=== PATIENT | female | born 1960 | race Caucasian/White ===

== ENCOUNTER 2019-12-10 08:43 | Outpatient (REF) | payer OTHER, SELFPAY | END 2019-12-10 08:44 | disposition home or self-care (01) | LOC: HO.LAB 08:43 | PROVIDERS: Visit Provider Internal Medicine | DX: Z20.828 Contact with and (suspected) exposure to other viral communicable diseases (principal) | CPT/HCPCS: 87635 ==

== ENCOUNTER 2019-12-28 09:02 | Outpatient (REF) | payer OTHER, SELFPAY ==
--- NOTE | 2019-12-28 14:56 | XR_ITS ---
EXAMINATION: XR ANKLE, LEFT CLINICAL INFORMATION: Pain COMPARISON: None TECHNIQUE: AP, lateral, and mortise views of the left ankle. FINDINGS: The bones and soft tissues are normal. No fracture. Alignment is anatomic. Joint spaces are maintained. No joint effusion. There are calcaneal spurs. XR/XR ankle LT min 3V IMPRESSION: Calcaneal spurs otherwise unremarkable exam.
== END 2019-12-28 09:03 | disposition home or self-care (01) ==
LOC: HO.LAB 09:02
PROVIDERS: Absent Provider Student in an Organized Health Care Education/Training Program; PCP Internal Medicine; Visit Provider Internal Medicine
DX: Z20.828 Contact with and (suspected) exposure to other viral communicable diseases (principal); M25.572 Pain in left ankle and joints of left foot; M25.551 Pain in right hip
CPT/HCPCS: 73610; 99212; C9803; U0003

== ENCOUNTER 2020-01-29 15:28 | Outpatient (REF) | payer OTHER, SELFPAY | END 2020-01-29 15:29 | disposition home or self-care (01) | LOC: HO.LAB 15:28 | PROVIDERS: PCP Internal Medicine; Visit Provider Internal Medicine | DX: Z20.828 Contact with and (suspected) exposure to other viral communicable diseases (principal) | CPT/HCPCS: C9803; U0003 ==

== ENCOUNTER 2020-02-12 08:00 | Outpatient (RCR) | payer OTHER, SELFPAY ==
--- NOTE | 2020-02-26 14:42 | MHC.PT.DC ---
[facility] [place] Office [place] [facility] [place] Office [address] [phone] F: [phone] F: [phone] F: [phone] F: [phone] Physical Therapy Discharge Report Diagnosis: RIGHT HIP PAIN, CHRONIC IN NATURE. NOW WORSENING. PAIN IS DESCRIBED DULL, JOINT PAIN IN ANTERIOR CREASE OF THIGH. DENIES ALTERED SENSATION, DENIES EDEMA, ECCHYMOSIS. LIVES IN SINGLE STORY HOME WITH STAIRS TO BASEMENT. PAIN INCREASES WITH LONGER PERIODS OF WALKING (GREATER THAN 15 MINS) [ End ] Date of Surgery: NA Date of Evaluation: 01/04/20 Date of Discharge: 02/12/20 Treatments to Date: 6 Cancellations to Date: 4 No Shows to Date: 0 Discharge Status: Patient Elected to Stop Recommend MD Follow-up Discharge Summary: 02/11 pt plans to follow up with product manufacturing professional. Reports continued hip pain when walking, no signif change in symptoms. She was advised to contact MD as she feels her sx are unchanged since trial of PT Electronically signed by: Jania Schilling PT, DPT Please sign and return to therapist. Thank you for your referral.
== END 2020-02-26 14:59 | disposition other institution (70) ==
LOC: HO.PT 08:00
PROVIDERS: Visit Provider Student in an Organized Health Care Education/Training Program
DX: M25.572 Pain in left ankle and joints of left foot (principal); M25.551 Pain in right hip
CPT/HCPCS: 97110; 97162; 97530

== ENCOUNTER 2020-02-14 09:40 | Outpatient (REF) | payer OTHER, SELFPAY ==
[2020-02-15 12:54] LABS: BV Int Neg Control Negative (Negative); BV Int Pos Control Positive (Positive)
[2020-02-19 21:12] LABS: HPV mRNA E6/E7 rflx Not Detected (Not Detected)
== END 2020-02-14 09:41 | disposition home or self-care (01) ==
LOC: HO.LAB 09:40
PROVIDERS: PCP Internal Medicine; Visit Provider Advanced Practice Midwife
DX: Z12.4 Encounter for screening for malignant neoplasm of cervix (principal); Z20.2 Contact with and (suspected) exposure to infections with a predominantly sexual mode of transmission
CPT/HCPCS: 36415; 87480; 87510; 87624; 87660; 88142

== ENCOUNTER 2020-02-22 10:31 | Outpatient (REF) | payer OTHER, SELFPAY | END 2020-02-22 10:32 | disposition home or self-care (01) | LOC: HO.HAP 10:31 | PROVIDERS: Visit Provider Internal Medicine | DX: Z46.1 Encounter for fitting and adjustment of hearing aid (principal) | CPT/HCPCS: V5266 ==

== ENCOUNTER 2020-04-16 13:15 | Outpatient (REF) | payer OTHER, SELFPAY ==
--- NOTE | ~2020-04-16 | MM_ITS ---
EXAMINATION: MM DIAGNOSTIC DIGITAL BREAST TOMOSYNTHESIS, BILATERAL US DIAGNOSTIC ULTRASOUND BREAST, LEFT CLINICAL INFORMATION: Chronic left breast pain on and off lateral aspect. No palpable mass or discharge. No known family history breast cancer. The lifetime risk of breast cancer based on the Tyrer-Cuzick Model is 8%. COMPARISON: Mammography: 03/27/2019, 03/16/2018, 03/15/2017 TECHNIQUE: Digital breast tomosynthesis is performed in both the craniocaudal and mediolateral oblique views along with computer-aided detection (CAD). Synthesized 2D images are generated from the tomosynthesis. Additional right MLO view is provided. Ultrasound left breast is targeted to the areas of clinical concern outer breast. Grayscale imaging and color Doppler are performed without and with harmonics. FINDINGS: There are scattered areas of fibroglandular density (ACR BI-RADS breast composition Category b). Parenchymal pattern is similar to prior exams. There is no interval mass or architectural abnormality or developing density. No abnormal calcifications. No skin thickening or coarsening of the Shivam's ligaments. Ultrasound demonstrates no cystic or solid mass or architectural abnormality. No focal duct ectasia. No skin thickening or edema tracking in soft tissue planes. Results are discussed with the patient at time of visit. MM/MM tomosynthesis diagnostic BI IMPRESSION: 1. No mammographic evidence of malignancy or focal inflammatory changes. 2. Unremarkable targeted left breast ultrasound. ASSESSMENT: BI-RADS 1: Negative RECOMMENDATION: 1. Patient's breast pain should be managed based on the clinical impression. 2. Otherwise, routine annual screening mammography. This patient's information was entered into a reminder system with a target due date for their next mammogram.
== END 2020-04-16 13:16 | disposition home or self-care (01) ==
LOC: HO.MAMMO 13:15
PROVIDERS: PCP Internal Medicine; Visit Provider Internal Medicine
DX: N64.4 Mastodynia (principal)
CPT/HCPCS: 76642; 77062; 77066

== ENCOUNTER 2020-05-13 14:29 | Outpatient (REF) | payer OTHER, SELFPAY ==
[2020-05-14 11:19] LABS: SARS COV2 PCR INHOUSE NEGATIVE (Negative)
== END 2020-05-13 14:30 | disposition home or self-care (01) ==
LOC: HO.LAB 14:29
PROVIDERS: Visit Provider Internal Medicine
DX: Z20.822 Contact with and (suspected) exposure to COVID-19 (principal)
CPT/HCPCS: C9803; U0003

== ENCOUNTER 2020-06-20 14:00 | Outpatient (RCR) | payer OTHER, SELFPAY | END 2020-06-20 15:02 | disposition other institution (70) | LOC: HO.PT 14:00 | PROVIDERS: PCP Internal Medicine; Visit Provider Podiatrist | DX: M76.62 Achilles tendinitis, left leg (principal) | CPT/HCPCS: 97035; 97110; 97112; 97140; 97161; 97530 ==

== ENCOUNTER 2020-08-22 06:56 | Outpatient (REF) | payer OTHER, SELFPAY ==
[2020-08-22 07:20] LABS: MANUAL DIFF FLAG NO
[2020-08-22 07:23] LABS: Basophils Percent Auto 0.4 % (0-2); Eosinophils Percent Auto 2.7 % (0-4); Hematocrit 38.9 % (37-47); Hemoglobin 11.9 g/dl (12.0-16.0); Imm Gran Abs Auto 0.02 X10*3/uL (0.00-0.03); Imm Gran Pct Auto 0.3 % (0.0-0.4); Lymphocytes Absolute Auto 1.9 X10*3/uL (1.2-4.9); Lymphocytes Percent Auto 25.4 % (20-40); Mean Corpuscular HGB Conc 30.6 g/dl (31.0-35.0); Mean Corpuscular Hemoglobin 27.5 pg (27.0-33.0); Monocytes Absolute Auto 0.6 X10*3/uL (0.1-1.2); Monocytes Percent Auto 8.5 % (2-11); Neutrophils Absolute Auto 4.6 X10*3/uL (2.0-8.3); Neutrophils Percent Auto 62.7 % (45-73); Platelet Count 418 X10*3/uL (160-400); Red Blood Count 4.32 X10*6/uL (4.20-5.50); White Blood Count 7.3 X10*3/uL (4.8-10.8)
[2020-08-22 07:24] LABS: Eosinophils Absolute Auto 0.2 X10*3/uL (0.0-0.4)
[2020-08-22 07:50] LABS: Alanine Aminotransferase 22 U/L (0-31); Albumin Level 4.1 g/dL (3.5-5.0); Alkaline Phosphatase 95 U/L (39-117); Anion Gap 14 (12-20); Aspartate Amino Transferase 18 U/L (5-31); Bilirubin Total 0.2 mg/dL (0.0-1.0); Blood Urea Nitrogen 17 mg/dL (9-16); Calcium 9.5 mg/dL (8.4-10.2); Carbon Dioxide 26 mmol/L (22-29); Chloride 108 mmol/L (96-108); Cholesterol 216 mg/dL; Estimated Glomerular Filt Rate > 60; Glucose Random 102 mg/dL (60-115); HDL Cholesterol 48 mg/dL; LDL Cholesterol Calculated 140 mg/dl; Potassium 3.8 mmol/L (3.3-5.1); Sodium 144 mmol/L (135-145); Total Protein 6.8 g/dL (6.5-8.0); Triglycerides 141 mg/dL
[2020-08-22 08:12] LABS: Free T4 (Free Thyroxine) 0.99 ng/dL (0.71-1.85); Thyroid Stimulating Hormone 1.42 uIU/mL (0.32-4.0)
[2020-08-22 08:40] LABS: Folate 13.9 ng/mL (> or = 4.0); Vitamin B12 275 pg/mL (200-900)
== END 2020-08-22 06:57 | disposition home or self-care (01) ==
LOC: HO.LAB 06:56
PROVIDERS: PCP Internal Medicine; Visit Provider Internal Medicine
DX: I10 Essential (primary) hypertension (principal); E78.00 Pure hypercholesterolemia, unspecified
CPT/HCPCS: 36415; 80053; 80061; 82306; 82607; 82746; 84439; 84443; 85025

== ENCOUNTER → 2020-10-23 11:12 | Outpatient (BNVA) | payer OTHER, SELFPAY | PROVIDERS: PCP Internal Medicine; Visit Provider Student in an Organized Health Care Education/Training Program | CPT/HCPCS: Q3014 ==

== ENCOUNTER 2020-10-31 11:35 | Outpatient (REF) | payer OTHER, SELFPAY ==
--- NOTE | ~2020-10-31 | XR_ITS ---
EXAMINATION: XR LUMBOSACRAL SPINE CLINICAL INFORMATION: Low back pain COMPARISON: Previous x-ray August 2015 TECHNIQUE: Three views of the lumbosacral spine. FINDINGS: There is mild curvature of the mid lumbar spine to the left. Bone alignment is otherwise normal. No fracture or dislocation is seen. Disc spaces are normal. There is lower lumbar spine facet arthritis. There is degenerative spondylosis at L3-L4 and L4-L5. XR/XR lumbar spine 2-3V IMPRESSION: Degenerative changes.
== END 2020-10-31 11:36 | disposition home or self-care (01) ==
LOC: HO.XRAY 11:35
PROVIDERS: PCP Internal Medicine; Visit Provider Student in an Organized Health Care Education/Training Program
DX: M54.5 Low back pain (principal)
CPT/HCPCS: 72100

== ENCOUNTER 2020-11-27 08:17 | Outpatient (REF) | payer OTHER, SELFPAY ==
[2020-11-27 08:28] LABS: MANUAL DIFF FLAG NO
[2020-11-27 09:18] LABS: Basophils Percent Auto 0.5 % (0-2); Eosinophils Absolute Auto 0.3 X10*3/uL (0.0-0.4); Eosinophils Percent Auto 3.5 % (0-4); Hemoglobin 12.9 g/dl (12.0-16.0); Imm Gran Abs Auto 0.03 X10*3/uL (0.00-0.03); Imm Gran Pct Auto 0.4 % (0.0-0.4); Immature Retic Fraction 10.6 % (3.0-15.9); Lymphocytes Absolute Auto 1.9 X10*3/uL (1.2-4.9); Lymphocytes Percent Auto 24.3 % (20-40); Mean Corpuscular HGB Conc 30.7 g/dl (31.0-35.0); Mean Corpuscular Hemoglobin 27.1 pg (27.0-33.0); Mean Corpuscular Volume 88.2 fL (80-98); Mean Platelet Volume 10.4 fL (9.4-12.3); Monocytes Absolute Auto 0.5 X10*3/uL (0.1-1.2); Monocytes Percent Auto 6.7 % (2-11); Neutrophils Percent Auto 64.6 % (45-73); Platelet Count 451 X10*3/uL (160-400); Red Blood Count 4.76 X10*6/uL (4.20-5.50); Red Cell Distribution Width 12.8 % (11.0-16.0); Retic HGB Equivalent 29.7 pg (30.0-35.0); Reticulocyte Percent 1.9 % (0.5-1.8); Reticulocytes Absolute 0.091 X10*6/uL (0.026-0.095); White Blood Count 7.7 X10*3/uL (4.8-10.8)
[2020-11-27 09:38] LABS: Alanine Aminotransferase 38 U/L (0-31); Albumin Level 4.4 g/dL (3.5-5.0); Alkaline Phosphatase 116 U/L (39-117); Anion Gap 14 (12-20); Aspartate Amino Transferase 26 U/L (5-31); Bilirubin Total 0.4 mg/dL (0.0-1.0); Blood Urea Nitrogen 20 mg/dL (9-16); Calcium 9.8 mg/dL (8.4-10.2); Carbon Dioxide 27 mmol/L (22-29); Chloride 107 mmol/L (96-108); Cholesterol 202 mg/dL; Estimated Glomerular Filt Rate > 60; Glucose Random 115 mg/dL (60-115); HDL Cholesterol 48 mg/dL; Iron 75 mcg/dL (30-160); LDL Cholesterol Calculated 128 mg/dl; Percent Iron Saturation 22 % (15-50); Potassium 3.7 mmol/L (3.3-5.1); Sodium 144 mmol/L (135-145); Total Iron Binding Capacity 346 mcg/dL (228-428); Total Protein 7.4 g/dL (6.5-8.0); Triglycerides 131 mg/dL; Unsaturated Iron Binding 271 ug/dL
[2020-11-27 10:01] LABS: Ferritin 174 ng/mL (10-250)
[2020-11-27 10:19] LABS: Folate 8.8 ng/mL (> or = 4.0); Vitamin B12 424 pg/mL (200-900)
== END 2020-11-27 08:18 | disposition home or self-care (01) ==
LOC: HO.LAB 08:17
PROVIDERS: PCP Internal Medicine; Visit Provider Internal Medicine
DX: E78.00 Pure hypercholesterolemia, unspecified (principal)
CPT/HCPCS: 36415; 80053; 80061; 82607; 82728; 82746; 83540; 85025; 85045

== ENCOUNTER 2020-12-03 09:21 | Emergency (ER) | payer OTHER, SELFPAY ==
[2020-12-03 09:25] VITALS: BP 167/59; PULSE 69; RESP 18; TEMP 36.4; O2SAT 99; BMI 35.8
--- NOTE | 2020-12-03 10:30 | ED.PSYCH ---
HPI - Psych General Chief Complaint: Psychiatric Symptoms Stated Complaint: CRISIS Time Seen by Provider: 12/03/20 10:15 Source: patient Mode of arrival: ambulatory Limitations: no limitations History of Present Illness HPI Narrative: 6-year-old female with history of depression anxiety who presents emergency department for evaluation worsening depression. The patient states that there has been increased stress at home, her had a open heart surgery 3 months prior and a recently adopted a 7-year-old child. The patient cannot identify specific trigger but she states that she is feeling more depressed. She states that her depression is a constant feeling sadness. She states that over the past week she has been thinking self-harm, cutting herself. She has never cut herself in the past. She has also been having suicidal thoughts. She states that she has thought of opening the car door while the car was moving in jumping out. She states she has never attempted suicide in the past. She is on antidepressant medications she states that her provider increased her dose of medications 3 months prior. She denied being ill in any way prior to arrival such as fever, chills, chest pain, shortness of breath, abdominal pain, nausea, vomiting. The patient denies drug and alcohol use. She states that she has received the [employer] COVID-19 vaccine in April of 2020. Related Data Home Medications Medication Instructions Recorded Confirmed fluticasone propionate 50 1 spray INTRANASAL DAILY 12/28/19 12/03/20 mcg/actuation nasal spray,suspension omeprazole 40 mg capsule,delayed 40 mg PO DAILY@0630 12/28/19 12/03/20 release buspirone 10 mg tablet 10 mg PO BID 02/14/20 12/03/20 topiramate 50 mg tablet 1 tab PO BID 02/22/20 12/03/20 hydroxyzine pamoate 25 mg capsule 25 mg PO BID PRN 08/29/20 12/03/20 aspirin 81 mg tablet,delayed 81 mg PO DAILY 12/01/20 12/03/20 release (Adult Low Dose Aspirin) acetaminophen 650 mg 650 mg PO Q8H PRN 12/03/20 12/03/20 tablet,extended release (Mapap Arthritis Pain) cholecalciferol (vitamin D3) 25 25 mcg PO DAILY 12/03/20 12/03/20 mcg (1,000 unit) capsule (Vitamin D3) sertraline 100 mg tablet 150 mg PO DAILY 12/03/20 12/03/20 Previous Rx's Medication Instructions Recorded olmesartan 20 mg tablet 20 mg PO DAILY #90 tab 04/18/20 metoprolol succinate 25 mg 25 mg PO DAILY #90 tab 05/19/20 tablet,extended release 24 hr pyridoxine (vitamin B6) 50 mg 50 mg PO DAILY #90 tab 09/09/20 tablet amlodipine 10 mg tablet 10 mg PO DAILY #90 tab 09/19/20 atorvastatin 10 mg tablet 10 mg PO BEDTIME #90 tab 11/23/20 hydrochlorothiazide 25 mg tablet 25 mg PO DAILY 90 Days #90 tab 12/01/20 Allergies Allergy/AdvReac Type Severity Reaction Status Date / Time homatropine Allergy Intermediate TONGUE Verified 12/03/20 09:24 [From Hycodan (with SWELLING, homatropin)] NUMBNESS- PASSED OUT codeine [CODEINE] Allergy Mild UNKNOWN Verified 12/03/20 09:24 meloxicam [MELOXICAM] Allergy Mild RASH Verified 12/03/20 09:24 Hydrocodone-Acetaminophen Allergy Intermediate Rash Uncoded 06/20/20 11:22 Review of Systems Review of Systems: Yes all other systems are reviewed and are negative [facility] Past Medical History [facility] Narrative: Social history: The patient is and her is here in the emergency department with her. She denies tobacco use. She states that she rarely drinks alcohol. She denies drug use. Source: unable to obtain Medical History (Updated 12/03/20 @ 15:41 by Luis M Seals MD) Adrenal incidentaloma Anxiety and depression Basilar artery aneurysm Cervical spondylosis Fatty liver Fibromyalgia GERD (gastroesophageal reflux disease) HTN (hypertension) Hypercholesterolemia Lateral epicondylitis Left carpal tunnel syndrome Lumbar spondylitis Migraine Obesity YOBANI (obstructive sleep apnea) Osteoarthritis Right renal stone TFCC (triangular fibrocartilage complex) injury Thyroid nodule Tubular adenoma of colon Surgical History H/O foot surgery History of bunionectomy History of colonoscopy History of ear surgery History of elbow surgery History of mammogram History of surgery on arm Hx of section Hx of tubal ligation S/P dilatation and curettage Family History Family History Mother Diabetes CVD (cardiovascular disease) Osteoporosis Hypertension Father Diabetes Hypertension Emphysema lung Maternal Uncle Liver cancer Social History Social History Housing: House Alcohol intake: current Alcohol intake frequency: holidays/special occasions only Alcohol type: beer and wine Patient Tobacco Use Status: Never used Tobacco Second Hand Smoke Exposure: No Use of substances other than those prescribed or required for medical reasons: No Advance Directives: No Advance Directives Information Provided: Yes Patient : No service: No Current occupational status: unemployed Physical Exam Vital Signs: Vital Signs: Last Vital Signs Temp 98.6 F 12/03/20 14:58 Pulse 84 12/03/20 14:58 Resp 16 12/03/20 14:58 BP 149/70 H 12/03/20 14:58 Pulse Ox 97 12/03/20 14:58 Body Mass Index 35.8 Const: Other: Very pleasant and cooperative female patient, she does appear to be depressed, she answers all questions appropriately. HENMT: Head: Yes normal to inspection, Yes normocephalic and Yes atraumatic Ears: external ears normal General nose exam: Normal external nose present Face and sinus: Yes normal facial exam Mouth: Normal oral and palatal mucosa present Throat: Yes posterior oropharynx normal Eyes: General: appearance normal, both eyes and all related structures Pupils: Equal, round and reactive pupils present Neck: Neck: Yes normal visual inspection, Yes no lymphadenopathy, Yes trachea midline and Yes supple Chest: Chest palpation & inspection: normal inspection of the chest and normal palpation of entire chest wall Resp: Effort & Inspection: normal respiratory effort and able to speak in complete sentences Auscultation: clear to auscultation bilaterally Cardio: Rate: regular rate Rhythm: regular rhythm Heart sounds: S1 normal heart sound present, S2 normal heart sound present and no murmurs GI: Inspection: Yes normal to inspection Palpation (GI): Soft to palpation, nontender and no guarding Auscultation: normal bowel sounds : General: Yes no CVA tenderness Back/Spine/Pelvis: Back: no CVA tenderness Skin: General skin exam: no rashes or lesions noted Neuro: Cranial nerves: Yes CN's II-XII intact bilaterally and Yes Equal, round and reactive pupils present Cognition (Neuro): normal cognition Motor exam (neuro): 5/5 motor strength present throughout Extrem: General: Yes normal to inspection Psych: Appearance: grossly normal Speech and movement: Normal speech and movement present Affect: Sad affect present Attitude: cooperative Thought process: Normal thought process present Thought content: Suicidality present and no homicidality Course Course Course Narrative: 60-year-old female with history of anxiety and depression who presents emergency department for evaluation of worsening depression over several months, with new thoughts of self-harm and suicidal ideation over the past several days. The patient has been compliant with her psychiatric medications and she states that these medications were increased 3 months prior. The patient's vital signs did reveal slight elevation in her blood pressure of 167/59 but this is noncontributory to her presentation. Her exam was otherwise unremarkable. A urine drug screen and COVID-19 test were ordered. The patient is medically cleared for further psychiatric evaluation. The [facility] crisis service was consulted. 1536: The patient's COVID-19 test was negative. Urine tox screen was negative. Patient was seen by our care team. The patient is not actively suicidal and it was felt that she would benefit from a partial inpatient treatment program. The patient will be discharged to home. [facility] - Psych Lab Data Labs: Lab Results 12/03/20 12/03/20 12/03/20 Range/Units 11:03 11:03 11:03 Urine Color YELLOW Urine Appearance CLEAR Urine pH 7.0 (5.0-8.0) Ur Specific [place] 1.015 (1.005-1.025) Urine Protein NEG (NEG-TRACE) MG/DL Urine Glucose (UA) NEG (NEG) MG/DL Urine Ketones NEG (NEG) MG/DL Urine Blood NEG (NEG) Urine Nitrite NEG (NEG) Ur Leukocyte Esterase NEG (NEG) Urine RBC 1-4 (0) /HPF Urine WBC 0 (0-4) /HPF Ur Squamous Epith Cells 1+ /LPF Urine Bacteria TRACE /LPF Urine Opiates Screen Not Detected (Not Detect) Urine Fentanyl Screen Not Detected (Not Detect) Ur Barbiturates Screen Not Detected (Not Detect) Ur Phencyclidine Scrn Not Detected (Not Detect) Ur Amphetamines Screen Not Detected (Not Detect) U Benzodiazepines Scrn Not Detected (Not Detect) Urine Cocaine Screen Not Detected (Not Detect) U Marijuana (THC) Screen Not Detected (Not Detect) COVID-19 (ANDRESSA) Negative (Negative) COVID-19 Clin Com See Note Discharge Plan Discharge Clinical Impression: Depression, Anxiety Patient Disposition: Home, Self-Care Additional Instructions: Your COVID-19 test was negative. Your urine drug screen was negative as well. At this time, we believe that the best option to help with your depression anxiety is outpatient treatment. Please follow the instructions for the partial inpatient program as per our care team. However, if you feel like you are going to hurt yourself, if you feel unsafe in any way or if you feel like you are going to hurt anyone else, please return to the emergency department and we can get you help and rethink the plan. Continue taking medications as prescribed by your doctors. Follow-up with your doctor in 2 days. Please return to the emergency department if your symptoms get worse or if you develop any symptoms that are concerning to you. Prescriptions: No Action olmesartan 20 mg tablet 20 mg PO DAILY Qty: 90 RF: 2 metoprolol succinate 25 mg tablet extended release 24 hr 25 mg PO DAILY Qty: 90 RF: 3 pyridoxine (vitamin B6) 50 mg tablet 50 mg PO DAILY Qty: 90 RF: 1 amlodipine 10 mg tablet 10 mg PO DAILY Qty: 90 RF: 2 atorvastatin 10 mg tablet 10 mg PO BEDTIME Qty: 90 RF: 2 topiramate 50 mg tablet 1 tab PO BID RF: 0 sertraline 100 mg tablet 150 mg PO DAILY RF: 0 cholecalciferol (vitamin D3) [Vitamin D3] 25 mcg (1,000 unit) Capsule 25 mcg PO DAILY RF: 0 acetaminophen [Mapap Arthritis Pain] 650 mg tablet extended release 650 mg PO Q8H PRN (Reason: Pain (Scale Score 1-3)) RF: 0 hydroxyzine pamoate 25 mg capsule 25 mg PO BID PRN (Reason: Anxiety) RF: 0 hydrochlorothiazide 25 mg tablet 25 mg PO DAILY 90 Days Qty: 90 RF: 2 aspirin [Adult Low Dose Aspirin] 81 mg tablet,delayed release (DR/EC) 81 mg PO DAILY RF: 0 buspirone 10 mg tablet 10 mg PO BID RF: 0 fluticasone propionate 50 mcg/actuation spray,suspension 1 spray intranasal DAILY RF: 0 omeprazole 40 mg capsule,delayed release(DR/EC) 40 mg PO DAILY@0630 RF: 0
--- NOTE | 2020-12-03 10:50 | PC.NURSE ---
client contracts for safety, client exhibits good eye contact in interview. social drinker, denies use of street drugs lists potential stressors as husbands open heart surgery and newer adoptive child that has been in their home for three months, surgery was three months ago also
--- NOTE | 2020-12-03 11:05 | PHA.MEDREC ---
Pharmacy Consult ? Medication Reconciliation Pharmacy has completed the medication reconciliation. Spoke with patient in 1.
[2020-12-03 11:19] LABS: Appearance Urine CLEAR; Color Urine YELLOW; Glucose Urine UA NEG (NEG); Leukocyte Esterase Urine NEG (NEG); Nitrite Urine NEG (NEG); Specific Gravity - Urine 1.015 (1.005-1.025); Urine Blood NEG (NEG); Urine Ketones NEG (NEG); Urine Protein NEG (NEG-TRACE)
[2020-12-03 11:26] LABS: Bacteria Urine TRACE /LPF; Squamous Epithelial Cell Urine 1+ /LPF; WBC Urine 0 /HPF (0-4)
[2020-12-03 11:28] LABS: COVID-19 Test Negative (Negative); IDNOW Serial# 9DD0AD1C
[2020-12-03 11:34] LABS: Amphetamine Screen Urine Not Detected (Not Detect); Barbiturates, Urine Not Detected (Not Detect); Benzodiazepines Screen Urine Not Detected (Not Detect); Cannabinoid Screen Urine Not Detected (Not Detect); Cocaine Screen Urine Not Detected (Not Detect); Fentanyl, urine Not Detected (Not Detect); Opiate Screen Urine Not Detected (Not Detect); Phencyclidine Screen Urine Not Detected (Not Detect)
[2020-12-03 14:58] VITALS: BP 149/70; PULSE 84; RESP 16; TEMP 37; O2SAT 97
--- NOTE | 2020-12-03 15:12 | PC.NURSE ---
Report recieved. Pt meeting with CARE team at current, calm and cooperative.
--- NOTE | 2020-12-03 16:16 | MHC.CARE ---
Patient is a 60 year-old Stateless speaking, woman who was brought to the ED by her due to increased depression and suicidal thoughts. She reported a number of stressors such as her having open heart surgery three months ago and escalating behavior of their 7 year-old foster child. Patient has a history of depression, is unknown to the CARE Team and has no history of inpatient treatment. CARE Team met with patient in [facility]; she was alert and oriented, polite and easy to engage. She appeared her stated age, spoke softly and clearly, made appropriate eye contact, hygiene and grooming within normal limits, no evidence of psychosis or delusions. Patient was tearful at time when she discussed the stress she has been managing, mainly related to the foster child that has been with her and her since she was 3 mos. By report, the girl has ODD, RAD and ADHD and has caused tremendous disruptions in the home and patient?s undermines discipline and does not support patient in setting limits. Patient decided that she does not want to adopt the child while her wanted to and does not acknowledge the issues, blames patient, made comments about the marriage being over. This has caused patient to feel dismissed and unheard, had fleeting thoughts of jumping from the car when he said that. Patient stated that she is episcopal and would not take her own life but was so frustrated with the situation. She did meet with her prescriber at [facility] who increased the antidepressant. Called patient?s who said he believes that the medication change has caused his to be more anxious and irritable, he is not concerned she will hurt herself or commit suicide. Patient identified her sister and therapist as primary supports however does not have many natural supports, is close with her children but they have indicated they are tired of listening to her complain and won?t bring the grandchildren over because of the foster child?s behavior. While patient was at the ED, DCF came and took the foster child from school and are picking up her belongings shortly. Patient does not meet the criteria for inpatient hospitalization and would benefit from a referral to [facility]; they will contact her directly tomorrow to schedule an intake appointment. Patient has a therapy session tomorrow and will reach out to her psychiatrist about the medication. She was provided with information about [facility] and contact information for CARE Team and [facility] Crisis. Discussed disposition with ED provider, Dr. Seals
== END 2020-12-03 16:15 | disposition home or self-care (01) ==
PROVIDERS: Physician Assistant; Emergency Provider Emergency Medicine Emergency Medical Services; PCP Internal Medicine
DX: F32.9 Major depressive disorder, single episode, unspecified (principal); F41.9 Anxiety disorder, unspecified; I10 Essential (primary) hypertension; Z79.899 Other long term (current) drug therapy; Z20.822 Contact with and (suspected) exposure to COVID-19
CPT/HCPCS: 36415; 80307; 81001; 87635; 99285

== ENCOUNTER 2020-12-11 09:45 | Outpatient (RCR) | payer OTHER, MEDICARE, SELFPAY ==
--- NOTE | 2020-12-12 09:33 | PC.NURSE ---
I spoke with the client after she said that she could not start today because her had to go to the emergency room for his asthma and she needs to watch her infant grandson. We discussed starting on Tuesday and meeting for a brief assessment with Anitha prior to coming for group. I told her Anitha would call her today.
== END 2020-12-15 08:43 | disposition home or self-care (01) ==
LOC: HO.PHPA 09:45
PROVIDERS: PCP Internal Medicine; Visit Provider Psychiatry & Neurology Psychiatry
DX: F32.1 Major depressive disorder, single episode, moderate (principal); F41.1 Generalized anxiety disorder
CPT/HCPCS: 90791

== ENCOUNTER 2021-01-20 16:31 | Outpatient (REF) | payer OTHER, SELFPAY ==
[2021-01-20 17:30] LABS: Influenza A PCR NEGATIVE (Negative); Influenza B PCR NEGATIVE (Negative); Resp Syncy Virus RNA Qual PCR NEGATIVE (Negative); SARS COV2 PCR INHOUSE NEGATIVE (Negative)
== END 2021-01-20 16:32 | disposition home or self-care (01) ==
LOC: HO.LNP 16:31
PROVIDERS: Visit Provider Physician Assistant Medical
DX: Z20.822 Contact with and (suspected) exposure to COVID-19 (principal); J06.9 Acute upper respiratory infection, unspecified
CPT/HCPCS: 0241U

== ENCOUNTER 2021-04-21 09:46 | Outpatient (REF) | payer OTHER, SELFPAY ==
--- NOTE | ~2021-04-21 | XR_ITS ---
EXAMINATION: XR HIP, RIGHT CLINICAL INFORMATION: Chronic right hip pain COMPARISON: 07/03/2018 TECHNIQUE: Two views of the right hip. FINDINGS: No fracture or dislocation. The right hip is well aligned. Mild joint space narrowing with subchondral sclerosis. The right hemipelvis is intact. The bowel gas pattern is unremarkable. XR/XR hip RT min 2V IMPRESSION: Mild degenerative changes of the right hip.
== END 2021-04-21 09:47 | disposition home or self-care (01) ==
LOC: HO.XRAY 09:46
PROVIDERS: PCP Internal Medicine; Visit Provider Nurse Practitioner Family
DX: M54.50 Low back pain, unspecified (principal); M25.551 Pain in right hip
CPT/HCPCS: 73502; 99212

== ENCOUNTER 2021-05-02 09:44 | Outpatient (REF) | payer OTHER, SELFPAY ==
--- NOTE | ~2021-05-02 | MM_ITS ---
EXAMINATION: MM SCREENING DIGITAL BREAST TOMOSYNTHESIS, BILATERAL CLINICAL INFORMATION: Screening. Asymptomatic. The lifetime risk of breast cancer based on the Tyrer-Cuzick Model is 7.3%. COMPARISON: Mammography: 04/16/2020 and studies dating back to 01/29/2015. TECHNIQUE: Digital breast tomosynthesis is performed in both the craniocaudal and mediolateral oblique views along with computer-aided detection (CAD). Synthesized 2D images are generated from the tomosynthesis. FINDINGS: The breasts are heterogeneously dense, which may obscure small masses (ACR BI-RADS breast composition Category c). There is a stable parenchymal pattern of the right breast. No new abnormal dominant mass or suspicious grouping of microcalcification identified. Within the anterior aspect of the left breast about the inferomedial aspect there is a partially circumscribed density present but which on some prior studies is seen to have been present. No definite new abnormal dominant mass is appreciated. MM/MM tomosynthesis screening BI IMPRESSION: There are no significant changes from prior study. ASSESSMENT: BI-RADS 2: Benign RECOMMENDATION: Routine annual mammography screening. This patient's information was entered into a reminder system with a target due date for their next mammogram.
== END 2021-05-02 09:45 | disposition home or self-care (01) ==
LOC: HO.MAMMO 09:44
PROVIDERS: Visit Provider Internal Medicine
DX: Z12.31 Encounter for screening mammogram for malignant neoplasm of breast (principal)
CPT/HCPCS: 77063; 77067

== ENCOUNTER 2021-05-10 10:56 | Emergency (ER) | payer OTHER, SELFPAY ==
--- NOTE | ~2021-05-10 | XR_ITS ---
EXAMINATION: XR CHEST CLINICAL INFORMATION: Cough and shortness of breath COMPARISON: Previous chest x-ray May 2018 TECHNIQUE: 2 views of the chest were obtained. FINDINGS: The cardiac and mediastinal contours are stable. The lungs are clear. There is no pleural effusion or pneumothorax. There are mild degenerative changes of the spine. XR/XR chest 2V IMPRESSION: No evidence for acute disease in the chest.
[2021-05-10 11:01] VITALS: BP 173/55; PULSE 80; RESP 16; TEMP 35.5; O2SAT 96; BMI 35.5
--- NOTE | 2021-05-10 11:16 | ECG_ITS ---
Test Reason : SOB Blood Pressure : / mmHG Vent. Rate : 074 BPM Atrial Rate : 074 BPM P-R Int : 176 ms QRS Dur : 084 ms QT Int : 410 ms P-R-T Axes : 046 -05 023 degrees QTc Int : 455 ms Normal sinus rhythm Normal EKG When compared to the previous EKG of 17 may 2018, no significant changes Referred By: Michelle Chris Electronically Signed By:KAMRAN KAYE
[2021-05-10 12:37] LABS: MANUAL DIFF FLAG NO
[2021-05-10 12:39] LABS: Basophils Absolute Auto 0.1 X10*3/uL (0.0-0.2); Basophils Percent Auto 0.5 % (0-2); Eosinophils Absolute Auto 0.2 X10*3/uL (0.0-0.4); Eosinophils Percent Auto 2.1 % (0-4); Hematocrit 39.2 % (37.0-47.0); Hemoglobin 12.2 g/dl (12.0-16.0); Imm Gran Abs Auto 0.02 X10*3/uL (0.00-0.03); Imm Gran Pct Auto 0.2 % (0.0-0.4); Lymphocytes Absolute Auto 2.2 X10*3/uL (1.2-4.9); Lymphocytes Percent Auto 23.4 % (20-40); Mean Corpuscular HGB Conc 31.1 g/dl (31.0-35.0); Mean Corpuscular Volume 86.7 fL (80.0-98.0); Mean Platelet Volume 9.9 fL (9.4-12.3); Monocytes Absolute Auto 0.6 X10*3/uL (0.1-1.2); Monocytes Percent Auto 6.6 % (2-11); Neutrophils Absolute Auto 6.3 x10*3/uL (2.0-8.3); Neutrophils Percent Auto 67.2 % (45-73); Platelet Count 440 X10*3/uL (160-400); Red Blood Count 4.52 X10*6/uL (4.20-5.50); Red Cell Distribution Width 13.2 % (11.0-16.0); White Blood Count 9.4 X10*3/uL (4.8-10.8)
[2021-05-10 12:45] LABS: Prothrombin Time 11.7 SEC (9.9-13.0)
[2021-05-10 12:52] LABS: D Dimer High Sensitivity < 150 NG/ML
[2021-05-10 12:53] LABS: Alanine Aminotransferase 29 U/L (0-31); Albumin Level 4.1 g/dL (3.5-5.0); Alkaline Phosphatase 121 U/L (39-117); Anion Gap 13 (12-20); Aspartate Amino Transferase 22 U/L (5-31); Bilirubin Total 0.2 mg/dL (0.0-1.0); Blood Urea Nitrogen 17 mg/dL (9-16); Calcium 9.8 mg/dL (8.4-10.2); Carbon Dioxide 28 mmol/L (22-29); Chloride 107 mmol/L (96-108); Creatinine Clr Calc Pharmacy 92.6; Estimated Glomerular Filt Rate > 60; Glucose Random 104 mg/dL (60-115); Potassium 3.7 mmol/L (3.3-5.1); Sodium 144 mmol/L (135-145); Total Protein 7.2 g/dL (6.5-8.0)
[2021-05-10 12:58] LABS: IDNOW Serial# 08D9AD1C; Influenza A Negative (Negative); Influenza B2 Negative (Negative)
[2021-05-10 12:59] LABS: COVID-19 Test Negative (Negative); IDNOW Serial# 16C4AD1C
[2021-05-10 12:59] LABS: B Type Natriuretic Peptide 13 pg/mL (<100); Troponin-I High Sensitivity < 3.5 ng/L (<3.5-17.0)
[2021-05-10] MEDS: Albuterol Sulfate (0.083%) 2.5 MG/3 ML VIAL.NEB 5 MG INHALE (13:36)
[2021-05-10 13:38] VITALS: PULSE 80; RESP 16; O2SAT 96
--- NOTE | 2021-05-10 14:01 | ED.SOB ---
HPI - SOB/Dyspnea General Chief Complaint: Dyspnea Stated Complaint: SOB Time Seen by Provider: 05/10/21 11:05 Source: patient Mode of arrival: ambulatory Limitations: no limitations History of Present Illness HPI Narrative: 60-year-old female with a past medical history of hypertension, obesity, hyperlipidemia, migraine headaches, by basilar artery aneurysm, GERD, strep this sleep apnea on CPAP at home, anxiety, iron deficiency anemia presenting to the ED with complaints of a dry cough with shortness of breath over the past few days worse today. reports that it is worse when she takes a deep breath. Reports associated midsternal chest pain. She reports that has been constant for the past few days to a week. Reports that she was treated for a sinus infection reports that she no longer has nasal congestion/ rhinorrhea or sore throat. Denies Measured fevers, dizziness, headaches, neck pain / stiffness, trouble swallowing, palpitations, paresthesias, nausea/ vomiting / diarrhea, abdominal pain, back pain, lower extremity edema or calf tenderness, recent travel or sick contacts or any other symptoms complaints or concerns at this time. MD elicited complaint: shortness of breath, cough, pain with inspiration and chest pain Onset (ago): day(s) Timing: constant and progressively worsening Severity: moderate Exacerbating factors: lying flat, exertion, movement, coughing, inspiration and deep breaths Relieving factors: nothing Associated symptoms: chest pain, pain with inspiration, cough and orthopnea Treatment prior to arrival: none Related Data Home oxygen amount: none Home Medications Medication Instructions Recorded Confirmed fluticasone propionate 50 1 spray INTRANASAL DAILY 12/28/19 04/02/21 mcg/actuation nasal spray,suspension omeprazole 40 mg capsule,delayed 40 mg PO DAILY@0630 12/28/19 04/02/21 release buspirone 10 mg tablet 10 mg PO BID 02/14/20 04/02/21 topiramate 50 mg tablet 1 tab PO BID 02/22/20 04/02/21 aspirin 81 mg tablet,delayed 81 mg PO DAILY 12/01/20 04/02/21 release (Adult Low Dose Aspirin) acetaminophen 650 mg 650 mg PO Q8H PRN 12/03/20 04/02/21 tablet,extended release (Mapap Arthritis Pain) cholecalciferol (vitamin D3) 25 25 mcg PO DAILY 12/03/20 04/02/21 mcg (1,000 unit) capsule (Vitamin D3) sertraline 100 mg tablet 150 mg PO DAILY 12/03/20 04/02/21 Previous Rx's Medication Instructions Recorded metoprolol succinate 25 mg 25 mg PO DAILY #90 tab 05/19/20 tablet,extended release 24 hr amlodipine 10 mg tablet 10 mg PO DAILY #90 tab 09/19/20 atorvastatin 10 mg tablet 10 mg PO BEDTIME #90 tab 11/23/20 hydrochlorothiazide 25 mg tablet 25 mg PO DAILY 90 Days #90 tab 12/01/20 olmesartan 20 mg tablet 20 mg PO DAILY #90 tab 01/15/21 pyridoxine (vitamin B6) 50 mg 50 mg PO DAILY #90 tab 04/07/21 tablet albuterol sulfate 90 mcg/actuation 1 inh INHALATION QID PRN #6.7 g 04/20/21 aerosol inhaler azithromycin 250 mg tablet See Rx Instructions PO .COMPLEX #6 04/20/21 tab albuterol sulfate 90 mcg/actuation 1 inh INHALATION QID PRN #8.5 g 05/10/21 aerosol inhaler azithromycin 250 mg tablet See Rx Instructions .ROUTE 05/10/21 .COMPLEX #6 tab prednisone 20 mg tablet 40 mg PO DAILY 5 Days #10 tab 05/10/21 Allergies Allergy/AdvReac Type Severity Reaction Status Date / Time homatropine Allergy Intermediate TONGUE Verified 04/21/21 10:18 [From Hycodan (with SWELLING, homatropin)] NUMBNESS- PASSED OUT codeine [CODEINE] Allergy Mild UNKNOWN Verified 04/21/21 10:18 meloxicam [MELOXICAM] Allergy Mild RASH Verified 04/21/21 10:18 Hydrocodone-Acetaminophen Allergy Intermediate Rash Uncoded 04/21/21 10:18 Review of Systems Review of Systems: Constitutional : No Weight loss, No Fever, No Chills, No Night Sweats, No Fatigue, No Malaise ENT/Mouth : No Hearing loss, No Ear Pain, No Nasal Congestion, No Sinus Pain, No Hoarseness, No sore throat, No Rhinorrhea, No Swallowing Difficulty Eyes: No Eye Pain, No Swelling, No Redness, No Foreign Body, No Discharge, No Vision Changes Cardiovascular : + Chest Pain, + SOB, + Dyspnea on Exertion, + Orthopnea, No Edema, No Palpitations Respiratory : + Cough, No Sputum, No Wheezing, No Smoke Exposure, No Dyspnea Gastrointestinal : No Nausea, No Vomiting, No Diarrhea, No Constipation, No abdominal Pain, No Hematochezia, No Melena Genitourinary : no irregular bleeding, No Dysuria, No Urinary Frequency, No Hematuria, No Urinary Incontinence, No Urgency, No Flank Pain, No Urinary Flow Changes, No Hesitancy Musculoskeletal : No joint pain, No Myalgias, No Joint Swelling Skin : No Skin Lesions, No rash Neuro : No Weakness, No Numbness, No Paresthesias, No Loss of Consciousness, No Dizziness, No Headache Psych : No Anxiety/Panic, No Depression, No SI/HI/AH/VH, No Social Issues, Heme/Lymph: No Bruising, No Bleeding,No Lymphadenopathy Endocrine : No Polyuria, No Polydipsia, No Temperature Intolerance Yes all other systems are reviewed and are negative FORMERLY [facility], [facility]–1983 Past Medical History Attestation statement: The following information was validated with the patient. Medical History Adrenal incidentaloma Anxiety and depression Basilar artery aneurysm Cervical spondylosis Fatty liver Fibromyalgia GERD (gastroesophageal reflux disease) HTN (hypertension) Hypercholesterolemia Lateral epicondylitis Left carpal tunnel syndrome Lumbar spondylitis Migraine Obesity YOBANI (obstructive sleep apnea) Osteoarthritis Right renal stone TFCC (triangular fibrocartilage complex) injury Thyroid nodule Tubular adenoma of colon Surgical History H/O foot surgery History of bunionectomy History of colonoscopy History of ear surgery History of elbow surgery History of mammogram History of surgery on arm Hx of section Hx of tubal ligation S/P dilatation and curettage Family History Family History Mother Diabetes CVD (cardiovascular disease) Osteoporosis Hypertension Father Diabetes Hypertension Emphysema lung Maternal Uncle Liver cancer Social History Social History Household Members: Spouse Housing: House Alcohol intake: current Alcohol intake frequency: holidays/special occasions only Alcohol type: beer and wine Patient Tobacco Use Status: Never used Tobacco Second Hand Smoke Exposure: No Advance Directives: No Advance Directives Information Provided: No service: No Current occupational status: unemployed Physical Exam Vital Signs: Vital Signs: Last Vital Signs Temp 96 F L 05/10/21 11:01 Pulse 80 05/10/21 13:38 Resp 16 05/10/21 13:38 BP 173/55 H 05/10/21 11:01 Pulse Ox 96 05/10/21 11:01 BMI result Body Mass Index 35.5 vital signs have been reviewed as normal and appeared to be correct. Blood pressure 173/55. Heart rate normal. Respiration rate normal. Temperature normal. Oxygen saturation normal. Appearance: Alert. Oriented X3. No acute distress. Head: Normal external exam. Normocephalic. Atraumatic. Eyes: PERRLA. EOMI. Conjunctiva and sclera normal. Eyelids normal. ENT: EAC normal. TM's Normal. Pharynx normal. Uvula midline. Moist mucous membranes. No lesions/ulcerations or masses noted on the tongue. Normal voice. No trismus noted. No drooling noted. No muffled voice noted. Neck: Normal inspection. Neck supple. FROM. No adenopathy. Thyroid Normal. No tracheal deviation noted. No crepitus is noted. No meningeal signs. No neck mass noted. No signs of trauma noted. CVS: Normal heart rate and rhythm. Heart sound normal. Pulses normal throughout. No murmurs/rales/gallops. Respiratory: No respiratory distress. Painless inspiration. Breath sounds normal. No wheezes/rales/rhonchi noted. Chest nontender. No crepitus is noted. No signs of trauma noted. No accessory muscle usage noted or decreased air movement noted. No signs of trauma. Abdomen: Soft and nontender. Bowel sounds normal in all 4 quadrants. No distention noted. No organomegaly noted. No visible injury noted. Back: No CVA tenderness. Full range of motion noted. Nontender. No signs of trauma. Patient neuro intact bilaterally and distally on all 4 extremities. Patient's reflexes intact bilaterally and distally on all 4 extremities. No rashes/lesion/induration/fluctuance or signs of infection noted. Skin: Skin warm and dry. Normal skin color. Normal skin turgor. No rashes/lesions/lacerations noted. Extremities: No lower extremity edema. No calf tenderness is noted. Extremities exhibit normal range of motion and nontender. Neuro: Oriented X 3. No motor deficit. No sensory deficit. Reflexes normal. Normal steady gait. No focal neuro deficits noted. CN's II-XII intact bilaterally? Vascular: + radial pulses/+ 2 distal pedal pulses/+2 dorsalis pedis b/l. Normal cap refill. No cyanosis noted to upper extremity nails and lower extremity toes nails. Course Course Course Narrative: 60-year-old female with a past medical history of hypertension, obesity, hyperlipidemia, migraine headaches, by basilar artery aneurysm, GERD, strep this sleep apnea on CPAP at home, anxiety, iron deficiency anemia presenting to the ED with complaints of a dry cough with shortness of breath over the past few days worse today. reports that it is worse when she takes a deep breath. Reports associated midsternal chest pain. She reports that has been constant for the past few days to a week. Reports that she was treated for a sinus infection reports that she no longer has nasal congestion/ rhinorrhea or sore throat. Platelet count 440. BUN 17. Alkaline phosphate 121. Otherwise all other labs are within normal limits. Patient negative for COVID and flu. Chest x-ray within normal limits. D-dimer negative. EKG normal sinus rhythm no acute ischemic change are noted. Therefore patient most likely bronchitis will DC home with antibiotics and symptomatic treatment instructions return if any new or worsening symptoms to follow up with primary care provider. Patient understands agrees with this plan. MDM - SOB/Dyspnea Medical Records Attestation: I reviewed the patient's medical records. Lab Data Attestation: I reviewed the patient's lab results. Result diagrams: 05/10/21 12:33 05/10/21 12:33 Labs: Lab Results 05/10/21 05/10/21 05/10/21 Range/Units 11:37 11:37 12:33 WBC 9.4 (4.8-10.8) X10*3/uL RBC 4.52 (4.20-5.50) X10*6/uL Hgb 12.2 (12.0-16.0) g/dl Hct 39.2 (37.0-47.0) % MCV 86.7 (80.0-98.0) fL MCH 27.0 (27.0-33.0) pg MCHC 31.1 (31.0-35.0) g/dl RDW 13.2 (11.0-16.0) % Plt Count 440 H (160-400) X10*3/uL MPV 9.9 (9.4-12.3) fL Immature Gran % (Auto) 0.2 (0.0-0.4) % Neut % (Auto) 67.2 (45-73) % Lymph % (Auto) 23.4 (20-40) % Dougherty % (Auto) 6.6 (2-11) % Eos % (Auto) 2.1 (0-4) % Baso % (Auto) 0.5 (0-2) % Lymph # (Auto) 2.2 (1.2-4.9) X10*3/uL Dougherty # (Auto) 0.6 (0.1-1.2) X10*3/uL Eos # (Auto) 0.2 (0.0-0.4) X10*3/uL Baso # (Auto) 0.1 (0.0-0.2) X10*3/uL Abs Immat Gran (auto) 0.02 (0.00-0.03) X10*3/uL Absolute Neuts (auto) 6.3 (2.0-8.3) x10*3/uL Absolute Nucleated RBC 0.000 (0.0-0.012) X10*3/uL Nucleated RBC % (auto) 0.0 (0.0-0.2) /100WBC PT (9.9-13.0) SEC INR (0.9-1.1) D-Dimer High Sensitivty NG/ML Sodium (135-145) mmol/L Potassium (3.3-5.1) mmol/L Chloride (96-108) mmol/L Carbon Dioxide (22-29) mmol/L Anion Gap (12-20) BUN (9-16) mg/dL Creatinine (0.5-1.4) mg/dL Estim Creat Clear Calc Estimated GFR Random Glucose (60-115) mg/dL Calcium (8.4-10.2) mg/dL Magnesium (1.6-2.6) mg/dL Total Bilirubin (0.0-1.0) mg/dL AST (5-31) U/L ALT (0-31) U/L Alkaline Phosphatase (39-117) U/L Troponin I High Sens (<3.5-17.0) ng/L B-Natriuretic Peptide (<100) pg/mL Total Protein (6.5-8.0) g/dL Albumin (3.5-5.0) g/dL COVID-19 (ANDRESSA) Negative (Negative) COVID-19 Clin Com See Note Influenza Type A (YAW) Negative (Negative) Influenza Type B (YAW) Negative (Negative) Influenza A & B Note See Note 05/10/21 05/10/21 05/10/21 Range/Units 12:33 12:33 12:33 WBC (4.8-10.8) X10*3/uL RBC (4.20-5.50) X10*6/uL Hgb (12.0-16.0) g/dl Hct (37.0-47.0) % MCV (80.0-98.0) fL MCH (27.0-33.0) pg MCHC (31.0-35.0) g/dl RDW (11.0-16.0) % Plt Count (160-400) X10*3/uL MPV (9.4-12.3) fL Immature Gran % (Auto) (0.0-0.4) % Neut % (Auto) (45-73) % Lymph % (Auto) (20-40) % Dougherty % (Auto) (2-11) % Eos % (Auto) (0-4) % Baso % (Auto) (0-2) % Lymph # (Auto) (1.2-4.9) X10*3/uL Dougherty # (Auto) (0.1-1.2) X10*3/uL Eos # (Auto) (0.0-0.4) X10*3/uL Baso # (Auto) (0.0-0.2) X10*3/uL Abs Immat Gran (auto) (0.00-0.03) X10*3/uL Absolute Neuts (auto) (2.0-8.3) x10*3/uL Absolute Nucleated RBC (0.0-0.012) X10*3/uL Nucleated RBC % (auto) (0.0-0.2) /100WBC PT 11.7 (9.9-13.0) SEC INR 1.0 (0.9-1.1) D-Dimer High Sensitivty NG/ML Sodium 144 (135-145) mmol/L Potassium 3.7 (3.3-5.1) mmol/L Chloride 107 (96-108) mmol/L Carbon Dioxide 28 (22-29) mmol/L Anion Gap 13 (12-20) BUN 17 H (9-16) mg/dL Creatinine 0.77 (0.5-1.4) mg/dL Estim Creat Clear Calc 92.6 Estimated GFR > 60 Random Glucose 104 (60-115) mg/dL Calcium 9.8 (8.4-10.2) mg/dL Magnesium 2.0 (1.6-2.6) mg/dL Total Bilirubin 0.2 (0.0-1.0) mg/dL AST 22 (5-31) U/L ALT 29 (0-31) U/L Alkaline Phosphatase 121 H (39-117) U/L Troponin I High Sens < 3.5 (<3.5-17.0) ng/L B-Natriuretic Peptide 13 (<100) pg/mL Total Protein 7.2 (6.5-8.0) g/dL Albumin 4.1 (3.5-5.0) g/dL COVID-19 (ANDRESSA) (Negative) COVID-19 Clin Com Influenza Type A (YAW) (Negative) Influenza Type B (YAW) (Negative) Influenza A & B Note 05/10/21 Range/Units 12:33 WBC (4.8-10.8) X10*3/uL RBC (4.20-5.50) X10*6/uL Hgb (12.0-16.0) g/dl Hct (37.0-47.0) % MCV (80.0-98.0) fL MCH (27.0-33.0) pg MCHC (31.0-35.0) g/dl RDW (11.0-16.0) % Plt Count (160-400) X10*3/uL MPV (9.4-12.3) fL Immature Gran % (Auto) (0.0-0.4) % Neut % (Auto) (45-73) % Lymph % (Auto) (20-40) % Dougherty % (Auto) (2-11) % Eos % (Auto) (0-4) % Baso % (Auto) (0-2) % Lymph # (Auto) (1.2-4.9) X10*3/uL Dougherty # (Auto) (0.1-1.2) X10*3/uL Eos # (Auto) (0.0-0.4) X10*3/uL Baso # (Auto) (0.0-0.2) X10*3/uL Abs Immat Gran (auto) (0.00-0.03) X10*3/uL Absolute Neuts (auto) (2.0-8.3) x10*3/uL Absolute Nucleated RBC (0.0-0.012) X10*3/uL Nucleated RBC % (auto) (0.0-0.2) /100WBC PT (9.9-13.0) SEC INR (0.9-1.1) D-Dimer High Sensitivty < 150 NG/ML Sodium (135-145) mmol/L Potassium (3.3-5.1) mmol/L Chloride (96-108) mmol/L Carbon Dioxide (22-29) mmol/L Anion Gap (12-20) BUN (9-16) mg/dL Creatinine (0.5-1.4) mg/dL Estim Creat Clear Calc Estimated GFR Random Glucose (60-115) mg/dL Calcium (8.4-10.2) mg/dL Magnesium (1.6-2.6) mg/dL Total Bilirubin (0.0-1.0) mg/dL AST (5-31) U/L ALT (0-31) U/L Alkaline Phosphatase (39-117) U/L Troponin I High Sens (<3.5-17.0) ng/L B-Natriuretic Peptide (<100) pg/mL Total Protein (6.5-8.0) g/dL Albumin (3.5-5.0) g/dL COVID-19 (ANDRESSA) (Negative) COVID-19 Clin Com Influenza Type A (YAW) (Negative) Influenza Type B (YAW) (Negative) Influenza A & B Note Imaging Data Chest x-ray: Attestation: I personally reviewed and interpreted this imaging study as follows: Radiologist's impression: FINDINGS: The cardiac and mediastinal contours are stable. The lungs are clear. There is no pleural effusion or pneumothorax. There are mild degenerative changes of the spine. XR/XR chest 2V IMPRESSION: No evidence for acute disease in the chest. ECG Data Attestation: I personally reviewed and interpreted this ECG as follows: ECG interpretation date: 05/10/21 ECG interpretation time: 11:23 Interpretation: Normal sinus rhythm with ventricular rate of 74 with a normal [place] interval normal QRS duration normal QT/ QTC interval. No acute ischemic change are noted. No prior EKGs to compare to at this time. Critical Care Time Critical Care Time Critical Care Time: Yes Total Critical Care Time: 60 Attestation: I personally attest to this time spent taking care of the patient Discharge Plan Discharge Clinical Impression: Bronchitis Patient Disposition: Home, Self-Care Instructions: Acute Bronchitis (ED) Prescriptions: New azithromycin 250 mg tablet See Rx Instructions .ROUTE .COMPLEX Qty: 6 0RF Rx Instructions: take 500 mg today (day 1), then 250 mg for 4 days (days 2-5) prednisone 20 mg tablet 40 mg PO DAILY 5 Days Qty: 10 0RF albuterol sulfate 90 mcg/actuation HFA aerosol inhaler 1 inh inhalation QID PRN (Reason: shortness of breath or wheezing) Qty: 8.5 0RF No Action metoprolol succinate 25 mg tablet extended release 24 hr 25 mg PO DAILY Qty: 90 3RF amlodipine 10 mg tablet 10 mg PO DAILY Qty: 90 2RF atorvastatin 10 mg tablet 10 mg PO BEDTIME Qty: 90 2RF olmesartan 20 mg tablet 20 mg PO DAILY Qty: 90 2RF pyridoxine (vitamin B6) 50 mg tablet 50 mg PO DAILY Qty: 90 1RF topiramate 50 mg tablet 1 tab PO BID 0RF sertraline 100 mg tablet 150 mg PO DAILY 0RF cholecalciferol (vitamin D3) [Vitamin D3] 25 mcg (1,000 unit) Capsule 25 mcg PO DAILY 0RF acetaminophen [Mapap Arthritis Pain] 650 mg tablet extended release 650 mg PO Q8H PRN (Reason: Pain (Scale Score 1-3)) 0RF hydrochlorothiazide 25 mg tablet 25 mg PO DAILY 90 Days Qty: 90 2RF aspirin [Adult Low Dose Aspirin] 81 mg tablet,delayed release (DR/EC) 81 mg PO DAILY 0RF azithromycin 250 mg tablet See Rx Instructions PO .COMPLEX Qty: 6 0RF Rx Instructions: take 500 mg today (day 1), then 250 mg for 4 days (days 2-5) PO albuterol sulfate 90 mcg/actuation HFA aerosol inhaler 1 inh inhalation QID PRN (Reason: shortness of breath or wheezing) Qty: 6.7 1RF buspirone 10 mg tablet 10 mg PO BID 0RF fluticasone propionate 50 mcg/actuation spray,suspension 1 spray intranasal DAILY 0RF Rx Instructions: administer into each nostril omeprazole 40 mg capsule,delayed release(DR/EC) 40 mg PO DAILY@0630 0RF Referrals: Po,Leny Garcia MD [Primary Care Provider] - 2 days Stand Alone Forms: Work/School Release Print Language: Burkinan
== END 2021-05-10 14:24 | disposition home or self-care (01) ==
PROVIDERS: Physician Assistant Medical; Emergency Provider Emergency Medicine; PCP Internal Medicine
DX: J40 Bronchitis, not specified as acute or chronic (principal); R06.02 Shortness of breath; I10 Essential (primary) hypertension; G43.909 Migraine, unspecified, not intractable, without status migrainosus; Z20.822 Contact with and (suspected) exposure to COVID-19; Z79.899 Other long term (current) drug therapy
CPT/HCPCS: 36415; 71046; 80053; 83735; 83880; 84484; 85025; 85379; 85610; 87502; 87635; 93005; 94640; 94644; 99284

== ENCOUNTER 2021-05-20 16:07 | Outpatient (RCR) | payer OTHER, SELFPAY ==
--- NOTE | 2021-05-20 16:58 | MHC.PT.EP ---
[facility] [place] Office [place] Office [place] Office [address] Mynor Hackett [address] [phone] F: [phone] F: [phone] F: [phone] F: [phone] Physical Therapy Plan of Care Date of Evaluation: Date of Surgery: N/A Diagnosis: LBP, R hip pain Assessment: pt's signs and symptoms consistent w/ SI dysfunction and poor habitual posturing. pt presents to physical therapy with pain, decreased range of motion, decreased strength, impaired functional mobility, impaired postural awareness, and gait deviations. pt is a good candidate for skilled PT due to age, potential remediation of impairments, typical disease/condition progression and prognosis, comorbidities, and motivation. pt would benefit from tailored strengthening and stretching exercise program, functional training, gait training, postural re-training, neuromuscular re-education, modalities as needed for pain, equipment safety demonstration. Frequency and Duration: The patient will be seen 2x/wk for 4 wks Short Term Goals: pt will be I w/ HEP to promote self-management of condition. pt will demo proper sitting posture w/ lumbar roll to promote neutral spine w/ seated ADLs. Intermediate Goals: pt will demo proper lifting mechanics from floor to chest height of 15# object to promote neutral spine w/ lifting her grandchildren. pt will improve R hip abduction strength to at least 4/5 to reduce Trendelenburg w/ gait on even ground. Treatment Plan: Modalities to reduce pain, spasms and effusion. Manual therapy to restore motion and function. Therapeutic exercise to improve strength and flexibility. Neuromuscular re-education for posture and balance. Therapeutic activities to return to functional activities of daily living. Electronically signed by: Sarah Nance PT, DPT Please sign and return to therapist. Thank you for your referral.
--- NOTE | 2021-06-10 13:48 | MHC.PT.DC ---
[facility] [place] Office [place] Office [place] Office [address] Mynor Hackett [address] [phone] F: [phone] F: [phone] F: [phone] F: [phone] Physical Therapy Discharge Report Diagnosis: LBP, R hip pain Date of Surgery: N/A Date of Evaluation: 05/20/21 Date of Discharge: 06/10/21 Treatments to Date: 1 Cancellations to Date: 0 No Shows to Date: 0 Discharge Status: Visit Non-compliance Discharge Summary: The patient did not schedule any follow up visits after her initial evaluation. It has been over two weeks. Her chart is being discharged at this time for visit non-compliance. Electronically signed by: Sarah Nance PT, DPT Please sign and return to therapist. Thank you for your referral.
== END 2021-06-10 13:49 | disposition home or self-care (01) ==
LOC: HO.PT 16:07
PROVIDERS: PCP Internal Medicine; Visit Provider Nurse Practitioner Family
DX: M54.50 Low back pain, unspecified (principal); M25.551 Pain in right hip
CPT/HCPCS: 97140; 97162

== ENCOUNTER 2021-08-26 08:31 | Outpatient (REF) | payer MEDICARE, MEDICAID, SELFPAY | END 2021-08-26 08:32 | disposition home or self-care (01) | LOC: HO.HAP 08:31 | PROVIDERS: Visit Provider Internal Medicine | DX: Z46.1 Encounter for fitting and adjustment of hearing aid (principal); H90.3 Sensorineural hearing loss, bilateral | CPT/HCPCS: 92592 ==

== ENCOUNTER → 2021-09-17 10:15 | Outpatient (BNVA) | payer MEDICARE, MEDICAID, SELFPAY | PROVIDERS: PCP Internal Medicine; Visit Provider Orthopaedic Surgery | DX: M54.50 Low back pain, unspecified (principal); G89.29 Other chronic pain; M25.551 Pain in right hip | CPT/HCPCS: 99202 ==